=== PATIENT | male | born 2000 | race Two or more races ===

== ENCOUNTER 2019-05-11 13:17 | Emergency (ER) | payer OTHER ==
[~2019-05-11] VITALS: Ht 167.6 cm; Wt 72.8 kg
[2019-05-11 13:27] VITALS: BP 120/77
[2019-05-11] MEDS ORDERED: KETOROLAC 30 MG/1 ML IM ONE (14:00)
[2019-05-11] MEDS ORDERED: DIAZEPAM 5 MG TABLET PO ONE (14:00)
[2019-05-11] MEDS ORDERED: KETOROLAC 30 MG/1 ML ONE (14:12)
[2019-05-11] MEDS ORDERED: DIAZEPAM 5 MG TABLET ONE (14:12)
--- NOTE | 2019-05-11 15:10 | NUR ---
DC EDUCATION PROVIDED, PT DEMONSTRATES UNDERSTANDING. PT AMBULATED STEADILY TO DC WITH RN AND FAMILY. FAMILY TO TRANSPORT PT HOME.
== END 2019-05-11 15:12 | disposition home or self-care (01) ==
LOC: ED 15:00
DX: S39.012A Strain of muscle, fascia and tendon of lower back, initial encounter (principal); F17.200 Nicotine dependence, unspecified, uncomplicated; Z91.048 Other nonmedicinal substance allergy status; X50.0XXA Overexertion from strenuous movement or load, initial encounter; Y93.89 Activity, other specified; Y92.89 Other specified places as the place of occurrence of the external cause; Y99.8 Other external cause status
CPT/HCPCS: 72072; 96372; 99283; J1885